=== PATIENT | male | born 1975 ===

== ENCOUNTER 2017-09-12 17:51 | Emergency (ER) | payer SELFPAY ==
--- NOTE | 2017-09-12 18:01 | ED PDOC ---
Arrival/HPI - General Time Seen by Provider: 09/12/17 17:53 Historian: EMS EM Caveat: Intoxicated - History of Present Illness Narrative History of Present Illness (Text): 09/12/17 17:58 42 y/o male, limited HPI can be obtained, nkda, etoh on breath, FS 80, biba for etoh intoxication x 1 hour. Pt. was found by the EMS ambulance that he was sitting in front of the porch of a stranger's house with multiple cans of the beer on the side, no blood on the scene, walking and moving all extremities without pain or difficulty, here in the ER with no medical or psychological except he wants to sleep off the alcohol effect. Past Medical History - Provider Review Nursing Documentation Reviewed: Yes Family/Social History - Physician Review Nursing Documentation Reviewed: Yes Family/Social History: Unknown Family HX Allergies/Home Meds Allergies/Adverse Reactions: Allergies No Known Allergies Allergy (Verified 09/12/17 18:01) Home Medications: Home Meds Medication Instructions Recorded Confirmed Unobtainable 09/12/17 09/12/17 Review of Systems - Review of Systems Systems not reviewed;Unavailable: Intoxicated Physical Exam - Physical Exam Physical Exam Limitations: Intoxication Vital Signs Temp Pulse Resp BP Pulse Ox 09/13/17 02:25 86 12 102/51 L 95 09/13/17 00:41 90 16 103/56 L 09/12/17 18:25 99.1 F 105 H 18 98/60 L 93 L - Systems Exam Head: Present: Atraumatic, Other (no facial bony tenderness or swelling). No: Normocephalic, Tenderness, Contusion, Swelling, Ecchymosis, Abrasion, Laceration Pupils: Present: PERRL Extroacular Muscles: Present: EOMI Conjunctiva: Present: Normal Ears: Present: NORMAL TM, Normal Canal. No: Erythema Mouth: Present: Moist Mucous Membranes Pharnyx: No: ERYTHEMA, EXUDATE, TONSILS ENLARGED Nose (External): Present: Atraumatic. No: Abrasion, Contusion, Laceration Nose (Internal): Present: Normal Inspection, No Active Bleeding. No: Rhinorrhea , Septal Hematoma, Epistaxis Neck: Present: Normal Range of Motion, Trachea Midline. No: MIDLINE TENDERNESS , Paraspinal Tenderness, Lymphadenopathy Respiratory/Chest: Present: Clear to Auscultation, Good Air Exchange. No: Respiratory Distress, Accessory Muscle Use Cardiovascular: Present: Regular Rate and Rhythm, Normal S1, S2. No: Murmurs Abdomen: No: Tenderness, Distention, Peritoneal Signs, Rebound, Guarding Back: Present: Normal Inspection Upper Extremity: Present: Normal Inspection. No: Cyanosis, Edema Lower Extremity: Present: Normal Inspection. No: Edema Neurological: Present: GCS=15, CN II-XII Intact, Motor Func Grossly Intact Skin: Present: Warm, Dry, Normal Color. No: Rashes Psychiatric: Present: Alert, Oriented x 3, Normal Insight, Normal Concentration Medical Decision Making ED Course and Treatment: 09/12/17 18:02 -FS 80 -Labs -IV Banana bag -Observe and reassess 09/13/17 02:00 -Labs are non-significant except CK 518 and Na 150 -Banana bag and IVF given, sleeping well, offered and recommended repeat CK level but the patient refused including the CMP panel. 09/13/17 02:53 -Pt. woke up, walk to the bathroom to urinate with normal gait and posture, request to be discharged and pull out the IV which the STEWARDING SUPERVISOR Symone did, refused to provide ID, refused to wait for me evaluate him, eloped from the the ER. - Lab Interpretations Lab Results: 09/12/17 19:04 09/12/17 19:04 Lab Results 09/12/17 19:04: WBC 6.7, RBC 3.91, Hgb 12.2 L, Hct 35.9 L, MCV 91.8, MCH 31.2, MCHC 34.0, RDW 14.1, Plt Count 219, MPV 8.3, Gran % 39.7 L, Lymph % (Auto) 47.3 H, [place] % (Auto) 12.4 H, Eos % (Auto) 0.3 L, Baso % (Auto) 0.3, Gran # 2.67, Lymph # (Auto) 3.2, [place] # (Auto) 0.8 H, Eos # (Auto) 0.0, Baso # (Auto) 0.02 09/12/17 19:04: Sodium 150 H, Potassium 3.7, Chloride 113 H, Carbon Dioxide 18 L , Anion Gap 22 H, BUN 13, Creatinine 0.9, Est GFR ( Amer) > 60, Est GFR ( Non-Af Amer) > 60, Random Glucose 111 H, Calcium 8.8, Magnesium 2.2, Total Bilirubin 0.2, AST 53, ALT 74 H, Alkaline Phosphatase 44, Total Creatine Kinase 518 H, CK-MB (CK-2) 2.5, CK-MB (CK-2) % Cancelled, Total Protein 7.7, Albumin 4.4, Globulin 3.3, Albumin/Globulin Ratio 1.3 I have reviewed the lab results: Yes - Medication Orders Current Medication Orders: Discontinued Medications Multivitamins/Vitamin C 10 ml/Thiamine HCl 100 mg/ Folic Acid 1 mg/ Sodium Chloride 1,011.2 mls @ 1,000 mls/hr IV .Q1H1M ONE Stop: 09/12/17 19:29 Last Admin: 09/12/17 19:15 Dose: 1,000 mls/hr eMAR Start Stop Document 09/12/17 19:15 RG (Rec: 09/12/17 20:17 [id number]) Intravenous Solution Start Date 09/12/17 Start Time 19:15 End Date 09/12/17 End time 20:20 Total Infusion Time 65 Multivitamins/Vitamin C 10 ml/Thiamine HCl 100 mg/ Folic Acid 1 mg/ Sodium Chloride 1,011.2 mls @ 1,000 mls/hr IV .Q1H1M ONE Stop: 09/12/17 20:22 Last Admin: 09/12/17 21:00 Dose: 1,000 mls/hr eMAR Start Stop Document 09/12/17 21:00 RG (Rec: 09/12/17 21:02 [id number]) Intravenous Solution Start Date 09/12/17 Start Time 21:00 End Date 09/12/17 - PA / SUBSTATION OPERATOR / Resident Statement /DO has reviewed & agrees with the documentation as recorded. Disposition/Present on Arrival - Present on Arrival Any Indicators Present on Arrival: No History of DVT/PE: No History of Uncontrolled Diabetes: No Urinary Catheter: No History of Decub. Ulcer: No - Disposition Have Diagnosis and Disposition been Completed?: Yes Diagnosis: Alcohol intoxication, Non-compliance Disposition: ELOPEMENT - ER ONLY Disposition Time: 18:30 Condition: GOOD
[2017-09-12 18:26] VITALS: TEMP 99.1
[2017-09-12] MEDS ORDERED: Multivitamin (MVI) 10 ML, Thiamine 100 MG, Folic Acid 1 MG in Sodium Chloride 0.9% 1,00... IV ONE ×2 (18:29→19:22)
[2017-09-12 19:10] LABS: BASO # 0.02 K/mm3 (0.0-2.0); BASO % 0.3 % (0.0-3.0); EOS % 0.3 % (1.5-5.0); GRAN # 2.67 (1.4-6.5); GRAN % 39.7 % (50.0-68.0); HEMOGLOBIN 12.2 g/dL (14.0-18.0); LYMPH # 3.2 (1.2-3.4); LYMPH % 47.3 % (22.0-35.0); MEAN CELL VOLUME 91.8 fl (80.0-105.0); MEAN CORPUSCULAR HEMOGLOBIN 31.2 pg (25.0-35.0); MEAN PLATELET VOLUME 8.3 fl (7.0-11.0); MONO # 0.8 (0.1-0.6); MONO % 12.4 % (1.0-6.0); RBC 3.91 10^6/uL (3.5-6.1); RED CELL DISTRIBUTION WIDTH 14.1 % (11.5-14.5); WHITE BLOOD COUNT 6.7 10^3/ul (4.5-11.0)
[2017-09-12 19:22] LABS: ALB/GLOB RATIO 1.3 (1.1-1.8); ALBUMIN 4.4 g/dL (3.0-4.8); ALT/SGPT 74 U/L (7-56); AST/SGOT 53 U/L (17-59); BLOOD UREA NITROGEN 13 mg/dL (7-21); CALCIUM 8.8 mg/dL (8.4-10.5); GFR AFRICAN-AMERICAN > 60; GFR NON-AFRICAN AMERICAN > 60
[2017-09-12 19:42] LABS: CK-MB 2.5 ng/mL (0.0-3.6)
[2017-09-13 02:26] VITALS: BP 102/51; PULSE 86; RESP 12; O2SAT 95
== END 2017-09-13 02:45 | disposition left against medical advice (07) ==
LOC: ED 17:51
DX: F10.129 Alcohol abuse with intoxication, unspecified (principal); Z91.19 Patient's noncompliance with other medical treatment and regimen
CPT/HCPCS: 80053; 82550; 82553; 83735; 85025; 96360; 99284; J3411; J7040